=== PATIENT | female | born 1950 | race Two or more races ===

== ENCOUNTER 2025-04-06 15:10 | Emergency (ER) | payer OTHER ==
[~2025-04-06] VITALS: Ht 170.2 cm; Wt 70.3 kg
[2025-04-06] MEDS ORDERED: ACETAMINOPHEN 500 MG GEL..CAP PO ONE ×2 (18:45→18:56)
[2025-04-06] MEDS ORDERED: LIDOCAINE HCL 1% 10ML VIAL PERCUT ONE (18:45)
== END 2025-04-06 23:27 | disposition home or self-care (01) ==
LOC: ER 15:10
DX: S01.81XA Laceration without foreign body of other part of head, initial encounter (principal); W18.39XA Other fall on same level, initial encounter; Y93.89 Activity, other specified; Y92.59 Other trade areas as the place of occurrence of the external cause; Y99.9 Unspecified external cause status; Z86.79 Personal history of other diseases of the circulatory system